=== PATIENT | male | born 1990 | race Caucasian/White ===

== ENCOUNTER 2021-09-01 05:08 | Emergency (ER) | payer OTHER, SELFPAY ==
--- NOTE | 2021-09-01 05:09 | ED_ITS ---
HPI - Alcohol General Chief Complaint: ETOH/Substance Use Stated Complaint: etoh Time Seen by Provider: 09/01/21 05:08 Source: patient and EMS Mode of arrival: EMS Limitations: no limitations History of Present Illness HPI narrative: from [place] has nowhere to go, vague about how he ended up here. His iphone . Had nowhere to go in the rain. complaint: alcohol intoxication Last drink: Hours (ago) Chronic alcohol use: No Previous visits for alcohol intoxication: No Recent trauma: No Associated symptoms: denies other symptoms Treatments prior to arrival: none Related Data Allergies Allergy/AdvReac Type Severity Reaction Status Date / Time No Known Allergies Allergy Verified 09/01/21 05:29 Review of Systems Review of Systems: Constitutional : No Fever, No Chills ENT/Mouth : No Ear Pain, No Nasal Congestion, No sore throat Eyes: No Eye Pain, No Swelling, No Redness Cardiovascular : No Chest Pain, No SOB Respiratory : No Cough, No Sputum, No Dyspnea Gastrointestinal : No Nausea, No Vomiting, No Diarrhea, No Hematochezia, No Melena Genitourinary : No Dysuria, No Urinary Frequency, No Hematuria Musculoskeletal : No Myalgias Skin : No Skin Lesions, No rash Neuro : No Weakness, No Numbness, No Paresthesias, No Dizziness, No Headache Psych : no Anxiety, no Depression, no SI/HI Heme/Lymph: No Lymphadenopathy Endocrine : No Polyuria, No Polydipsia All other systems reviewed and are negative [facility] Past Medical History Attestation statement: The following information was validated with the patient. Medical History (Updated 09/01/21 @ 05:25 by Rachel Bear DO) No known health problems Social History Social History (Updated 09/01/21 @ 05:22 by Rachel Bear DO) Alcohol intake: current Patient Tobacco Use Status: Tobacco use Unknown Physical Exam Vital Signs: Vital Signs: Last Vital Signs Temp 98.9 F 09/01/21 05:29 Pulse 76 09/01/21 05:29 Resp 16 09/01/21 05:29 BP 115/79 09/01/21 05:29 Pulse Ox 98 09/01/21 05:29 BMI result Body Mass Index 27.3 Appearance: Alert. Oriented X3. No acute distress. ETOH odor Eyes: Pupils equal, round and reactive to light. ENT: Pharynx normal. Neck: Normal inspection. Neck supple. CVS: Normal heart rate and rhythm. Pulses normal. Respiratory: No respiratory distress. Breath sounds normal. Abdomen: Soft and nontender. Skin: Skin warm and dry. Normal skin color. Normal skin turgor. Extremities: No lower extremity edema. No calf ttp Neuro: Oriented X 3. No motor deficit. No sensory deficit. Course Course Course Narrative: signed out pending safe DC MDM - Alcohol MDM Narrative Medical decision making narrative: 31 yo male from [place] here hanging out with someone and drinkiing then had no place to stay - 911 was called he has no SI, we are feeding him and charging his phone. No signs of trauma. Discharge Plan Discharge Clinical Impression: Alcohol intoxication Qualifiers: Complication of substance-induced condition: uncomplicated Qualified Code(s): F10.920 - Alcohol use, unspecified with intoxication, uncomplicated Instructions: Alcohol Intoxication (ED) Additional Instructions: return to ED for any worsening symptoms or concerns
[2021-09-01 05:29] VITALS: BP 115/79; PULSE 76; RESP 16; TEMP 37.2; O2SAT 98; BMI 27.3
[2021-09-01 06:00] VITALS: RESP 16
--- NOTE | 2021-09-01 07:44 | PC.NURSE ---
PT SLEEPING. PT HAS TOLERATED PO INTAKE. PLAN IS FOR DISCHARGE WHEN SOBER
== END 2021-09-01 10:02 | disposition home or self-care (01) ==
LOC: HO.ED 09:50
PROVIDERS: Emergency Provider Emergency Medicine
DX: F10.920 Alcohol use, unspecified with intoxication, uncomplicated (principal); Y90.9 Presence of alcohol in blood, level not specified
CPT/HCPCS: 99282; 99284